=== PATIENT | female | born 1955 | race Two or more races ===

== ENCOUNTER → 2018-05-29 | Outpatient (CLI) | payer OTHER ==
[~2018-05-29] MED LIST: LOZOL2.5 MG PO; PRILOSEC10 MG PO; SYNTHROID50 MCG PO; ZANTAC15 MG/ML PO
== END | disposition home or self-care (01) ==
LOC: RAD 501 08:09
DX: M25.552 Pain in left hip (principal); M25.551 Pain in right hip